=== PATIENT | female | born 2000 | race Caucasian/White ===

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

== ENCOUNTER 2021-01-01 14:20 | Outpatient (CLI) | payer OTHER ==
[~2021-01-01 14:20] MED LIST: DIFL150T PO
[2021-01-01] MEDS ORDERED: GI COCKTAIL 50ML BTL(HYOSCYAMINE/MAALOX/LIDOCAINE VISCOUS)(1:3:1) PO ONE (14:30)
[2021-01-01] MEDS ORDERED: ONDANSETRON 4MG/2ML VIAL IV PRN (14:30)
[2021-01-01] MEDS ORDERED: LOMOTIL 2.5MG/0.025MG TABLET PO ONE (14:30)
[2021-01-01] MEDS ORDERED: LR 1,000 ML IV ONE ×2 (14:30→15:50)
[2021-01-01 16:17] LABS: RSV AMPLIFICATION NEGATIVE (NEGATIVE)
--- NOTE | 2021-01-01 17:09 | IPNPDOC ---
Obstetrical Progress Note Date of Service Jan 01, 2021 Subjective 20 yo at 31w5d with PETROS of 28 FEB 2021 presents to L&D with complaints of body aches, headache, nausea, vomiting, and diarrhea for the last 3 days that have worsened over the last 18 hours. She reports that she has been having increased fatigue and lethargy. She has not had any sick contacts, she has not received her flu or COVID vaccination to date, and has not had any COVID expos ure. She denies contractions, leaking of fluid, vaginal bleeding, and reports positive movement. Assessment Heart Rate (FHR): 140 Variability: Moderate Accelerations: Positive Decelerations: None Tocometer Contractions: No (uterine irritability noted) Assessment and Plan Age: 20 : 1 Term: 0 Pre-term: 0 Abortions: 0 Livin Weeks & Days 31w5d Status: Reassuring Additional Comments Assessment: IUP at 31 weeks Gastroenteritis Dehydration Plan: Will await COVID testing, if negative will discharge to home Recommended for clear liquid diet x48 hours, then advance to BRAT, then advance diet as tolerated Discussed medication regimen and will prescribed the following: zofran, lomotil, tyelnol, pepcid Recommended to hydrate with 3-4 liters of water per day Recommended to keep all appointments with [employer] ATTENDANT Recommended to return if symptoms worsen or persist All questions answered to her and her spouses satisfaction She verbalizes understanding of all information and is without any further questions at this time. BELEN RUBALCAVA CNM Jan 01, 2021 15:52
== END 2021-01-01 19:10 | disposition home or self-care (01) ==
LOC: M LDO 14:20
PROVIDERS: ATTEND Registered Nurse Maternal Newborn
DX: O99.613 Diseases of the digestive system complicating pregnancy, third trimester (principal); K52.9 Noninfective gastroenteritis and colitis, unspecified; Z3A.31 31 weeks gestation of pregnancy; O99.283 Endocrine, nutritional and metabolic diseases complicating pregnancy, third trimester; E86.0 Dehydration; Z20.822 Contact with and (suspected) exposure to COVID-19; Z88.5 Allergy status to narcotic agent; Z88.8 Allergy status to other drugs, medicaments and biological substances
CPT/HCPCS: 59025; 87631; G0378; G0463; J2405

== ENCOUNTER → 2021-01-23 | Outpatient (CLI) | payer OTHER ==
[~2021-01-23] VITALS: Ht 165.1 cm; Wt 71.9 kg
[~2021-01-23] MED LIST changes: +ACET325C5 PO; +CYCLOBENZAPRINE 10MG TABLET PO ONE; +PRENTAB9 PO
[2021-01-23 18:58] VITALS: BP 103/51
--- NOTE | 2021-01-23 19:49 | IPNPDOC ---
Obstetrical Progress Note Date of Service Jan 23, 2021 Objective Vital Signs Date Time Temp Pulse Resp B/P (MAP) Pulse Ox O2 Delivery O2 Flow Rate FiO2 01/23/21 18:58 99.4 70 20 103/51 (68) Assessment and Plan Additional Comments Ms. Arnold is a 20yo at 35+0 who presents with constant hip and back pain. She reports she has chronic hip and back pain since [address] ems from her prior right hip surgeries. She said it is worse tonight and constant regardless of her position. She describes it as a sharp pain bilaterally and points to over the trochanters. She denied VB, LOF, decreased FM, or contractions. She denied n/v/d, cp, sob, orellana, visual changes, abd pain, f/c, urinary symptoms. She denied incontinence, weakness, paraesthesias, foot drop. EXAM AAOx3, NAD non-tachy no increased WOB gravid abdomen non-tender, soft no CVA tenderness BL LE with in-tact sensation, 5/5 strength normal affect and insight TAUS cephalic, MVP 4cm, +FM SVE 1/T/H and unchanged on 2h repeat exam NST CAT I reactive with irregular and infrequent contractions that patient cannot feel Ms. Arnold is a 20yo at 35+0 who presents with acute on chronic hip and back pain. She reports she has had hip and back pain since 20 weeks that she feels stems from her prior right hip surgeries. VS normal, CAT I NST, toco with irregular contractions that patient cannot feel. Strength and sensation in-tact on exam. SVE 1/T/H and unchanged on 2h repeat exam. UA was unremarkable. PTL is unlikely given findings at this time. Patient was given flexeril and a maternity belt with improved symptoms. Plan for physical therapy consult. Educated on routine OB return precautions. Otherwise to follow up at next NEELAM TRAN DO Jan 23, 2021 19:49
[2021-01-23 19:56] LABS: APPEARANCE, URINE CLEAR (CLEAR); BACTERIA, URINE AUTO NEGATIVE (NEGATIVE); BILIRUBIN, URINE AUTO NEGATIVE (NEGATIVE); BLOOD, URINE BLOOD NEGATIVE (NEGATIVE); COLOR, URINE YELLOW (YELLOW); GLUCOSE, URINE (UA) AUTO NEGATIVE (NEGATIVE); KETONE, URINE AUTO NEGATIVE (NEGATIVE); LEUKOCYTE ESTERASE, URINE AUTO NEGATIVE (NEGATIVE); MUCUS, URINE SMALL (NEGATIVE); NITRITE, URINE AUTO NEGATIVE (NEGATIVE); PROTEIN, URINE AUTO NEGATIVE (NEGATIVE); RBC, URINE AUTO 0 /HPF (0-3); SPECIFIC GRAVITY URINE AUTO 1.014 (1.002-1.035); SQUAMOUS EPITHELIAL CELL UR AU 1 /HPF (0-6); UROBILINOGEN, URINE AUTO 0.2 mg/dL (0.0-2.0); WBC, URINE AUTO 0 /HPF (0-3)
== END ==
LOC: M LDO 18:32
PROVIDERS: ATTEND Obstetrics & Gynecology
DX: O26.893 Other specified pregnancy related conditions, third trimester (principal); M54.50 Low back pain, unspecified; Z3A.35 35 weeks gestation of pregnancy; M25.569 Pain in unspecified knee; Z88.5 Allergy status to narcotic agent; Z88.8 Allergy status to other drugs, medicaments and biological substances
CPT/HCPCS: 59025; 76815; 81001; G0378; G0463

== ENCOUNTER 2021-02-20 20:59 | Outpatient (CLI) | payer OTHER ==
[~2021-02-20] VITALS: Ht 165.1 cm; Wt 74.1 kg
[~2021-02-20 20:59] MED LIST changes: -CYCLOBENZAPRINE 10MG TABLET PO ONE
[2021-02-20 21:22] VITALS: BP 122/69
[2021-02-20] MEDS ORDERED: VITA100T59 PO (21:42)
[2021-02-20] MEDS ORDERED: FERR325T82 PO (21:42)
[2021-02-20] MEDS ORDERED: HOME MED LIST COMPLETE! XX SCH (21:45)
--- NOTE | 2021-02-20 22:14 | IPNPDOC ---
Text Note Date of Service The patient was seen on 02/20/21. NOTE Item Value Date Time Urine Color YELLOW 02/20/212109 Urine Appearance HAZY 02/20/212109 Urine pH 5.0 UNITS 02/20/212109 Urine Specific [place] 1.034 02/20/212109 Urine Protein 1+ mg/dL H 02/20/212109 Urine Glucose (UA) NEGATIVE mg/dL 02/20/212109 Urine Blood NEGATIVE 02/20/212109 Urine Ketones NEGATIVE mg/dL 02/20/212109 Urine Nitrite NEGATIVE 02/20/212109 Urine Bilirubin 1+ H 02/20/212109 Urine Urobilinogen 0.2 mg/dL 02/20/212109 Urine Leukocyte Esterase 1+ H 02/20/212109 Urine WBC (Auto) 5 /HPF H 02/20/212109 Urine RBC (Auto) 20 /HPF H 02/20/212109 Urine Hyaline Casts (Auto) 0 /LPF 02/20/212109 Urine Bacteria (Auto) NEGATIVE 02/20/212109 Urine Squamous Epithelial Cells 9 /HPF 02/20/212109 Urine Mucus (Auto) MODERATE 02/20/21210902/20/21 19 yo AT 38.6 WEEKS HAVING LOWER ABDOMINAL PAIN NO VAGINAL LOSS DISCHARGE NO BLEEDING. HAD SEX TODAY THEN PELVIC PRESSURE. LMP 05/24/2020 EDC BY EARLY US 02/28 21. RISK FACTORS GESTATIONAL ANEMIA HIP SURGERY CAUTION HYPER FLEXION PHYSICAL EXAMINATION NO ACUTE DISTRESS NST REACTIVE MODERATE VARIABILITY NO DECELERATIONS CONTRACTIONS IRREGULAR. PELVIC EXAMINATION CERVIX SOFT POSTERIOR 1 CM NO SHOW OR DISCHARGE URINE CONCENTRATED NOT DRINKING ENOUGH FLUIDS. DISCHARGED UNDELIVERED WITH PRECAUTIONS KEEP APPOINTMENT TOMORROW AT CLINIC Baylee SNYDER, I+O VSBaylee, I+O Vital Signs Date Time Temp Pulse Resp B/P (MAP) Pulse Ox O2 Delivery O2 Flow Rate FiO2 02/20/21 21:22 98.2 67 18 122/69 (86) Davonte Boyle MD Feb 20, 2021 22:13
== END 2021-02-20 22:17 | disposition home or self-care (01) ==
LOC: M LDO 20:59
PROVIDERS: ATTEND Obstetrics & Gynecology
DX: O60.03 Preterm labor without delivery, third trimester (principal); Z3A.38 38 weeks gestation of pregnancy
CPT/HCPCS: 59025; 81001; 87088; G0378; G0463

== ENCOUNTER 2021-02-21 11:21 | Outpatient (CLI) | payer OTHER ==
[~2021-02-21] VITALS: Ht 165.1 cm; Wt 74.0 kg
[~2021-02-21 11:21] MED LIST changes: +FERR325T82 PO; +VITA100T59 PO
[2021-02-21 11:43] VITALS: BP 120/64
[2021-02-21 11:59] VITALS: BP 116/63
== END 2021-02-21 12:37 | disposition home or self-care (01) ==
LOC: M LDO 11:21
PROVIDERS: ATTEND Obstetrics & Gynecology
DX: O60.03 Preterm labor without delivery, third trimester (principal); O99.013 Anemia complicating pregnancy, third trimester; Z3A.38 38 weeks gestation of pregnancy
CPT/HCPCS: 59025; G0378; G0463

== ENCOUNTER 2021-02-23 00:36 | Outpatient (CLI) | payer OTHER ==
[~2021-02-23] VITALS: Ht 165.1 cm; Wt 75.7 kg
[2021-02-23 00:54] VITALS: BP 133/75
[2021-02-23] MEDS ORDERED: HOME MED LIST COMPLETE! XX SCH (01:00)
[2021-02-23] MEDS ORDERED: LR 1,000 ML IV ONE (02:40)
[2021-02-23 03:35] VITALS: BP 127/77
[2021-02-23 04:26] LABS: APPEARANCE, URINE CLEAR (CLEAR); BACTERIA, URINE AUTO NEGATIVE (NEGATIVE); BILIRUBIN, URINE AUTO NEGATIVE (NEGATIVE); BLOOD, URINE BLOOD NEGATIVE (NEGATIVE); COLOR, URINE YELLOW (YELLOW); GLUCOSE, URINE (UA) AUTO NEGATIVE (NEGATIVE); KETONE, URINE AUTO NEGATIVE (NEGATIVE); LEUKOCYTE ESTERASE, URINE AUTO NEGATIVE (NEGATIVE); MUCUS, URINE SMALL (NEGATIVE); NITRITE, URINE AUTO NEGATIVE (NEGATIVE); PROTEIN, URINE AUTO NEGATIVE (NEGATIVE); RBC, URINE AUTO 0 /HPF (0-3); SQUAMOUS EPITHELIAL CELL UR AU 1 /HPF (0-6); UROBILINOGEN, URINE AUTO 0.2 mg/dL (0.0-2.0); WBC, URINE AUTO 0 /HPF (0-3)
--- NOTE | 2021-02-23 04:36 | IPNPDOC ---
Text Note Date of Service Item Value Date Time Urine Color YELLOW 02/23/21399 Urine Appearance CLEAR 02/23/21399 Urine pH 6.0 UNITS 02/23/21399 Urine Specific [place] 1.020 02/23/21399 Urine Protein NEGATIVE mg/dL 02/23/21399 Urine Glucose (Auto)(UA) NEGATIVE mg/dL 02/23/21399 Urine Ketones (Auto) NEGATIVE mg/dL 02/23/21399 Urine Blood NEGATIVE 02/23/21399 Urine Nitrite NEGATIVE 02/23/21399 Urine Bilirubin NEGATIVE 02/23/21399 Urine Leukocyte Esterase (Auto) NEGATIVE 02/23/21399 Urine Urobilinogen 0.2 mg/dL 02/23/21399 Urine WBC (Auto) 0 /HPF 02/23/21399 Urine RBC (Auto) 0 /HPF 02/23/21399 Urine Hyaline Casts (Auto) 0 /LPF 02/23/21399 Urine Bacteria (Auto) NEGATIVE 02/23/21399 Urine Squamous Epithelial Cells 1 /HPF 02/23/21399 Urine Mucus (Auto) SMALL 02/23/21399 Vital Signs Label Value Date Time Patient Temperature 98.8 degrees F 02/23/2153 Temperature Source Temporal 02/23/2153 Pulse 73 02/23/2153 Respiratory Rate 18 bpm 02/23/2153 Blood Pressure Assessment 133/75 (94) 02/23/2153 Source Automatic Cuff (NIBP) Bedside Pulse Oximetry 98 % 02/23/2153 The patient was seen on 02/23/21. PRICE: JUDY HINES : 2000 MED REC#: [id number] ROOM: [facility] DOCTOR: Davonte Boyle MD PATIENT STATU S: REG CLI Cosign: REPORT #: [id number] Other : cc: Text Note Date of Service The patient was seen on 02/20/21. NOTE Item Value Date Time Urine Color YELLOW 02/20/212109 Urine Appearance HAZY 02/20/212109 Urine pH 5.0 UNITS 02/20/212109 Urine Specific [place] 1.034 02/20/212109 Urine Protein 1+ mg/dL H 02/20/212109 Urine Glucose (UA) NEGATIVE mg/dL 02/20/212109 Urine Blood NEGATIVE 02/20/212109 Urine Ketones NEGATIVE mg/dL 02/20/212109 Urine Nitrite NEGATIVE 02/20/212109 Urine Bilirubin 1+ H 02/20/212109 Urine Urobilinogen 0.2 mg/dL 02/20/212109 Urine Leukocyte Esterase 1+ H 02/20/212109 Urine WBC (Auto) 5 /HPF H 02/20/212109 Urine RBC (Auto) 20 /HPF H 02/20/212109 Urine Hyaline Casts (Auto) 0 /LPF 02/20/212109 Urine Bacteria (Auto) NEGATIVE 02/20/212109 Urine Squamous Epithelial Cells 9 /HPF 02/20/212109 Urine Mucus (Auto) MODERATE 02/20/21210902/20/21 19 yo AT 38.6 WEEKS HAVING LOWER ABDOMINAL PAIN NO VAGINAL LOSS DISCHARGE NO BLEEDING. HAD SEX TODAY THEN PELVIC PRESSURE. LMP 05/24/2020 EDC BY EARLY US 02/28 21. RISK FACTORS GESTATIONAL ANEMIA HIP SURGERY CAUTION HYPER FLEXION PHYSICAL EXAMINATION NO ACUTE DISTRESS NST REACTIVE MODERATE VARIABILITY NO DECELERATIONS CONTRACTIONS IRREGULAR. PELVIC EXAMINATION CERVIX SOFT POSTERIOR 1 CM NO SHOW OR DISCHARGE URINE CONCENTRATED NOT DRINKING ENOUGH FLUIDS. DISCHARGED UNDELIVERED WITH PRECAUTIONS KEEP APPOINTMENT TOMORROW AT CLINIC VS,Baylee, I+O VS, Baylee, I+O Vital Signs Date Time Temp Pulse Resp B/P (MAP) Pulse Ox O2 Delivery O2 Flow Rate FiO2 02/20/21 21:22 98.2 67 18 122/69 (86) Davonte Boyle MD Feb 20, 2021 22:13 DD: Davonte Boyle MD, 02/20/212213 DT: ESC 02/20/212213 DS: [email or web address] 02/20/212213 <Electronically signed by Davonte Boyle MD> 02/20/212213 DS2: NOTE Vital Signs Label Value Date Time Patient Temperature 97.9 degrees F 02/23/21 0335 Temperature Source Temporal 02/23/21 033 Pulse 71 02/23/215 Respiratory Rate 18 bpm 02/23/21334 Blood Pressure Assessment 127/77 (94) 02/23/215 Source Automatic Cuff (NIBP) 02/23/2021 patient seen 02/21/2021 for contractions and assessment for elevated blood pressure which was normalized . here today for complaints of contractions q3-5 minutes mild intensity category 1 strip moderate variability baseline normal accelerations noted . risk factors hip surgery gestational anemia examination pelvic 3cm posterior 50% effaced -3 station sf height 39 cm 4 quadrant bowel sounds soft uterus between contractions plan of care HYDRATE REASSESSMENT 2 HOURS . REVIEWED SAFE TO HAVE VAGINAL DELIVERY REVIEWED STIRRUPS WITH BACK REST . REASSESSMENT OF PATIENT CATEGORY 1 STRIP NO CERVICAL CHANGE. Patient and family requested that she be induced as her hip is popping and she is in pain. patient also claims that her appointment with lard tub washer suggested iol. having reviewed the chart there is no mention of iol . there is suggestion of positioning when in labor and ready to push. PATIENT MOTHER INDICATED THAT SHE WAS INDUCED AND DOESN'T UNDERSTAND THAT GUIDELINES AND RECOMMENDATIONS FOR DELIVERY HAVE CHANGED. ALSO IF IOL THERE IS A RISK OF INCREASE SECTION DISTRESS RISK OF TRANSIENT [place] AND NEED FOR NICU ADMISSION . PATIENT GIVEN NUMBER OF CLINIC TO CALL THURSDAY ALSO PRECAUTIONS AND REVIEWED [facility] BLEEDING CAN RETURN AT ANY TIME FOR ASSESSMENT 30 MINUTE DISCUSSION. DISCHARGED UNDELIVERED VS,Fishbone, I+O VS, Fishbone, I+O Vital Signs Date Time Temp Pulse Resp B/P (MAP) Pulse Ox O2 Delivery O2 Flow Rate FiO2 02/23/21 00:54 98.8 73 18 133/75 (94) 98 Room Air Davonte Boyle MD Feb 23, 2021 02:16
== END 2021-02-23 04:37 | disposition home or self-care (01) ==
LOC: M LDO 00:36
PROVIDERS: ATTEND Obstetrics & Gynecology
DX: O60.03 Preterm labor without delivery, third trimester (principal); O99.013 Anemia complicating pregnancy, third trimester; Z3A.38 38 weeks gestation of pregnancy
CPT/HCPCS: 59025; 81001; G0378; G0463

== ENCOUNTER 2021-02-26 15:37 | Inpatient (IN) | payer OTHER ==
[~2021-02-26] VITALS: Ht 165.1 cm; Wt 75.7 kg
[2021-02-26] VITALS (10 sets, daily range): BP systolic 111–138; BP diastolic 57–82
[2021-02-26] MEDS ORDERED: VITA500C24 PO (16:01)
[2021-02-26] MEDS ORDERED: HOME MED LIST COMPLETE! XX SCH (16:05)
--- OUTSIDE RECORDS SUMMARY | 2021-02-26 17:19 | CCD ---
Author Author [facility] Organization [facility] Address Unknown Phone Unavailable Support Name Relationship Address Phone UE Next Of Kin Unknown Unavailable FAUSTINA SIMMONS Next Of Kin [address] [place] [address] FAUSTINA SIMMONS ECON [address] [place] [address] Unavailable Re-disclosure Warning The records that you are about to access may contain information from federally-assisted alcohol or drug abuse programs. If such information is present, then the following federally mandated warning applies: This information has been disclosed to you from records protected by federal confidentiality rules (42 CFR part 2). The federal rules prohibit you from making any further disclosure of this information unless further disclosure is expressly permitted by the written consent of the person to whom it pertains or as otherwise permitted by 42 CFR part 2. A general authorization for the release of medical or other information is NOT sufficient for this purpose. The Federal rules restrict any use of the information to criminally investigate or prosecute any alcohol or drug abuse patient.The records that you are about to access may contain highly sensitive health information, the redisclosure of which is protected by Article 27-F of the [facility] Public Health law. If you continue you may have access to information: Regarding HIV / AIDS; Provided by facilities licensed or operated by the [facility] Office of Mental Health; or Provided by the [facility] Office for People With Developmental Disabilities. If such information is present, then the following [facility] mandated warning applies: This information has been disclosed to you from confidential records which are protected by state law. State law prohibits you from making any further disclosure of this information without the specific written consent of the person to whom it pertains, or as otherwise permitted by law. Any unauthorized further disclosure in violation of state law may result in a fine or alf sentence or both. A general authorization for the release of medical or other information is NOT sufficient authorization for further disc losure. Medications No Information Insurance Providers Payer name Policy type / Coverage type Policy ID Covered green party ID Covered green party's relationship to wilkes Policy Wilkes Plan Information [facility] [id number] Problems, Conditions, and Diagnoses No Information Surgeries/Procedures No Information Results ID Date Data Source [id number] 01/01/2021 03:32:00 PM EDT [facility] Name Value Range Interpretation Code Description Data Mica rce(s) Supporting Document(s) SARS coronavirus 2 RNA [Presence] in Res piratory specimen by RANDY with probe detection NEGATIVE [facility] This lab was ordered by [facility] a nd reported by [facility]. Procedure Social History No Information
[2021-02-26] MEDS ORDERED: OXYTOCIN DRIP 30 UNITS in IV 1 EA IV SCH (17:25)
[2021-02-26] MEDS ORDERED: OXYTOCIN DRIP 30 UNITS in IV 1 EA IV PRN ×4 (17:25)
--- NOTE | 2021-02-26 17:40 | HPEPDOC ---
Obstetrical History & Physical General Date of Admission Feb 26, 2021 at 17:15 History of Present Illness Mary Arnold is a 19yo G1 at 39+5 presenting for contractions. She denies vaginal bleeding, loss of fluid and endorses positive movement. Chief Complaint: Contractions, term Care Care: Good Care Dating Final EDC: Feb 28, 2021 Final EDC by: LMP LMP: May 24, 2020 Antepartum Course Height (inches): 65 Pre- weight (lbs.): 132 Admission Weight (lbs.): 163 Change in Weight (lbs.): 31 Past Medical History Past Obstetrical History : Past Obstetrical History: Primgravida POLICY ADVISER History: No pertinent history Past Medical History Medical History denies Surgical History: Other (2x hip surgeries) Family History Family History Maternal GM high blood pressure, diabetes Paternal GM breast cancer Paternal GF lung cancer Social History Marital Status: Family situation: Spouse/partner home Psychosocial History: No pertinent psych hx * Smoker: non-smoker Alcohol: Denies Drugs: denies Abuse Violence Screening Have you been hit/kicked/slapp: No Have you been sexually assault: No Imunizations Tdap status: current Allergies Coded Allergies: clavulanic acid (Verified Allergy, Unknown, rash, 02/23/21) oxycodone (Verified Allergy, Unknown, nausea, 02/23/21) prednisone (Verified Allergy, Unknown, insomnia, 02/23/21) Medications Scheduled Ascorbic Acid (Vitamin C) 500 Mg Capsule, 500 MG PO DAILY Ferrous Sulfate (Iron) 325 Mg Tablet, 1 TAB PO DAILY No.137/Iron/Folic Acd ( Vitamin Tablet) 1 Each Tablet, 1 TAB PO DAILY Physical Examination Physical Examination GENERAL: Alert and oriented times three. ABDOMEN: Gravid and non-tender to touch. FETUS: Is vertex (VTX) by sterile vaginal examination (SVE) and ultrasound HEART RATE: Regular rate and rhythm. LUNGS: Clear to auscultation (CTA). EXTREMITIES: No edema. Vital Signs/I&O Vital Signs Date Time Temp Pulse Resp B/P (MAP) Pulse Ox O2 Delivery O2 Flow Rate FiO2 02/26/21 16:18 98.4 20 02/26/21 15:56 92 120/57 (78) Laboratory Data [facility] Laboratory Tests 2 02/26/21 17:21: Serology Scanned Report Hepatitis B Testing Pertinent Laboratoy Data Blood Type: B+ RBC Antibody Screen: Negative HIV: Negative Hepatitis B: Negative Rapid Plasma Reagin: Nonreactive Rubella: Immune Varicella: Nonreactive Chlamydia/Gonorrhea: Negative Group B Streptococcus: Negative Glucose Tolerance Test: 118 Anatomy Ultrasound Placenta Location: Anterior Normal Anatomy: Yes Placenta Previa: No Steroid Therapy Steroid Therapy: No Vaginal Examination Dilation: 3 cm Effacement: 50% Station: -3 Cervical Consistency: Medium Cervical Position: Middle Presentation: Cephalic presentation Assessment Heart Rate (FHR): 130 Variability: Moderate Accelerations: Positive Decelerations: None Tocometer Contractions: Yes Frequency: regular, every 3-7 min. Multi-drug resistant Organism: No history of MDRO Assessment/Plan Assessment Mary Arnold is a 19-year-old G1 at 39+5 weeks by LMP and 1st trimester ultrasound. Presents to Labor and Delivery (L&D) for contractions. Cervix unchanged from previous evaluations at 3/50/-3. Discussed the ARRIVE trial and that primigravidas at 39 weeks had better maternal outcomes with similar outcomes with induction of labor at term. She desired induction of labor at term. Plan Admit and orient. Baggage Clerk and consent. Diet: clear liquid. Group B Streptococcus (GBS) [negative]. Labs and intravenous (IV) per unit protocol. Counseled on Pitocin and induction of labor (IOL). Lactated Ringers (LR): at 125 mL/hr. Anticipate [normal spontaneous delivery ()]. C-S as appropriate. Labor and Delivery Counseling I counseled her on the risks of vaginal delivery including but not limited to infection, bleeding. Described hemorrhage response in detail including need for blood transfusion and hysterectomy as life saving measures. Described oxytocin labor augmentation process and continuous monitoring. Described indications for delivery, forceps and vacuum deliveries. Risks of delivery including bleeding, infection, damage to nearby structures. Talked about shoulder dystocia and necessary measures including possible intentional breaking of clavicle or other bones to save the baby. She indicated understanding and all questions were answered. DANIELITO HENRIQUEZ DO Feb 26, 2021 17:40
[2021-02-26 18:30] LABS: HEMATOCRIT 34.3 % (36.0-47.0); HEMOGLOBIN 10.8 g/dl (12.0-15.5); MEAN CORPUSCULAR HEMOGLOBIN 25.2 pg (27.0-33.0); MEAN CORPUSCULAR HGB CONC 31.5 g/dl (32.0-36.5); PLATELET COUNT, AUTOMATED 223 10^3/uL (150-450); RED BLOOD COUNT 4.29 10^6/uL (4.00-5.40); WHITE BLOOD COUNT 10.4 10^3/uL (4.0-10.0)
[2021-02-26] MEDS: LR 1,000 ML IV SCH (19:01)
[2021-02-26] MEDS ORDERED: BUTORPHANOL 2 MG/ML INJ (J0595) IV ONE (22:30)
[2021-02-26] MEDS ORDERED: PROMETHAZINE INJ 25 MG/ML VIAL (J2550) IV ONE (22:30)
--- NOTE | 2021-02-26 23:28 | IPNPDOC ---
Obstetrical Progress Note Date of Service Feb 26, 2021 Subjective Pt uncomfortable, requesting IV pain medications. Objective Vital Signs Date Time Temp Pulse Resp B/P (MAP) Pulse Ox O2 Delivery O2 Flow Rate FiO2 02/26/21 22:45 18 02/26/21 19:01 82 120/58 (78) 02/26/21 17:50 98.2 Assessment Heart Rate (FHR): 120 Variability: Moderate Accelerations: Positive Decelerations: None Heart Rate Tracing: Category I Tocometer Contractions: Yes Frequency: regular, every 2-5 min. Sterile Vaginal Examination Dilation: 3 cm Effacement (%): 50% Station: -2 Cervical Consistency: Medium Cervical Position: Middle Postion/Presentation: Cephalic presentation Assessment and Plan Age: 20 : 1 Term: 0 Pre-term: 0 Abortions: 0 Livin Weeks & Days 39+5 Status: Reassuring Group B Streptococcus: Negative Anticipate: Vaginal Delivery Additional Comments 1mg stadol/12.5mg phenergan given for pain control will reevaluate labor in 4-6 hours, consider epidural/amniotomy at next check routine intrapartum care DANIELITO HENRIQUEZ DO Feb 26, 2021 23:28
[2021-02-27] VITALS (53 sets, daily range): BP systolic 90–126; BP diastolic 51–77
[2021-02-27] MEDS: LR 1,000 ML IV SCH ×3 (01:14→09:46)
[2021-02-27] MEDS ORDERED: FENTANYL 2MCG/ML ROPIVACAINE 0.2% IN 0.9% NACL 100ML IVBAG As Ordered ONE (02:38)
--- NOTE | 2021-02-27 02:45 | IPNPDOC ---
Obstetrical Progress Note Date of Service Feb 27, 2021 Subjective Called by nursing for repetitive late decelerations. Pitocin was a 6, turned off. Patient repositioned. Patient uncomfortable with contractions. Objective Vital Signs Date Time Temp Pulse Resp B/P (MAP) Pulse Ox O2 Delivery O2 Flow Rate FiO2 02/27/21 02:18 98.3 63 18 109/62 (78) Room Air Assessment Heart Rate (FHR): 120 Variability: Moderate Accelerations: Positive Decelerations: None Heart Rate Tracing: Category I Tocometer Contractions: Yes Frequency: regular, every 3-7 min. Sterile Vaginal Examination Dilation: 3 cm Effacement (%): 50% Station: -2 Cervical Consistency: Medium Cervical Position: Middle Postion/Presentation: Cephalic presentation Assessment and Plan Age: 20 : 1 Term: 0 Pre-term: 0 Abortions: 0 Livin Weeks & Days 39+6 Status: Reassuring Group B Streptococcus: Negative Anticipate: Vaginal Delivery Additional Comments Contacted anesthesia regarding epidural. Category I tracing at this time. Will allow recovery, consider rupture of membranes after epidural pl acement. routine intrapartum care DANIELITO HENRIQUEZ DO Feb 27, 2021 02:45
[2021-02-27] MEDS ORDERED: EPIDURAL/PCA KEYS XX PRN (03:19)
[2021-02-27] MEDS ORDERED: NALOXONE INJ 0.4MG/1ML VIAL (J2310 PER 1MG) IV PRN (03:19)
[2021-02-27] MEDS ORDERED: REFRIGERATOR IV KEYS XX PRN (03:19)
[2021-02-27] MEDS ORDERED: LACTATED RINGER'S 1000 ML IV PRN (03:19)
[2021-02-27] MEDS ORDERED: EPIDURAL COMMENT XX SCH (03:19)
[2021-02-27] MEDS ORDERED: diphenhydrAMINE 50MG/ML VIAL (J1200) IV PRN (03:19)
[2021-02-27] MEDS ORDERED: ePHEDrine SULFATE 25 MG/5 ML(5MG/ML) SYRINGE IV PRN (03:19)
[2021-02-27] MEDS ORDERED: FENTANYL/ROPIVACAINE/NACL BAG 100 ML EPIDURAL SCH (03:19)
[2021-02-27] MEDS ORDERED: ONDANSETRON 4MG/2ML VIAL IV PRN (03:19)
--- NOTE | 2021-02-27 04:20 | IPNPDOC ---
Obstetrical Progress Note Date of Service Feb 27, 2021 Subjective Patient comfortable with epidural, denies any complaints Objective Vital Signs Date Time Temp Pulse Resp B/P (MAP) Pulse Ox O2 Delivery O2 Flow Rate FiO2 02/27/21 03:41 66 17 113/63 (80) 02/27/21 02:18 98.3 Room Air Assessment Heart Rate (FHR): 120 Variability: Moderate Accelerations: Positive Decelerations: None Heart Rate Tracing: Category I Tocometer Contractions: Yes Frequency: regular, every 3-7 min. Sterile Vaginal Examination Dilation: 4 cm Effacement (%): 50% Station: -2 Cervical Consistency: Medium Cervical Position: Middle Postion/Presentation: Cephalic presentation Assessment and Plan Age: 20 : 1 Term: 0 Pre-term: 0 Abortions: 0 Livin Weeks & Days 39+6 Status: Reassuring Group B Streptococcus: Negative Anticipate: Vaginal Delivery Additional Comments Offered amniotomy after discussion of r/b/a including cord prolapse, emergent delivery, need for amnioinfusion. She agreed to amniotomy. Performed with return of clear fluid. Blood y show noted beforehand. Will allow baby to reequilibrate with intraamniotic environment then consider starting pitocin. routine intrapartum care DANIELITO HENRIQUEZ DO Feb 27, 2021 04:20
[2021-02-27] MEDS ORDERED: ONDANSETRON 4 MG TAB PO SCH (06:55)
[2021-02-27] MEDS ORDERED: OXYTOCIN INJ 10 UNITS/ML VIAL (J2590) IV ONE (11:15)
[2021-02-27 13:41] LABS: CORD GAS ABE V -6.4; CORD GAS HCO3 V 18.4 MEQ/L; CORD GAS O2 SAT V 82.6 %; CORD GAS PCO2 V 35.1 mmHg; CORD GAS PH V 7.337 UNITS; CORD GAS PO2 V 41.3 mmHg; CORD GAS TCO2 V 19.5 MEQ/L
[2021-02-27 13:43] LABS: CORD GAS ABE A -6.9; CORD GAS HCO3 A 17.8 MEQ/L; CORD GAS O2 SAT A 85.4 %; CORD GAS PCO2 A 34.2 mmHg; CORD GAS PH A 7.334 UNITS; CORD GAS PO2 A 43.8 mmHg; CORD GAS SBC A 18.7 MEQ/L; CORD GAS TCO2 A 18.8 MEQ/L
[2021-02-27] MEDS ORDERED: ACETAMINOPHEN TAB 650MG DOSE (2X325MG) PO PRN (14:40)
[2021-02-27] MEDS ORDERED: MOM 30ML SUSPENSION UDC PO PRN (14:40)
[2021-02-27] MEDS ORDERED: METHYLERGONOVINE MALEATE 0.2 MG/ML VIAL (J2210) IM ONE (14:40)
[2021-02-27] MEDS ORDERED: MEASLES,MUMPS,RUBELLA VACCINE INJ (MMR-II) (90707) SC SCH (14:40)
[2021-02-27] MEDS ORDERED: DIBUCAINE 1% OINTMENT 30GM TOP PRN (14:40)
[2021-02-27] MEDS ORDERED: RHOGAM 300 MCG (1500 IU) INJ (J2790) IM SCH (14:40)
[2021-02-27] MEDS ORDERED: METHYLERGONOVINE MALEATE 0.2 MG TAB PO PRN (14:40)
[2021-02-27] MEDS: IBUPROFEN 600MG TAB PO PRN ×2 (14:58→21:42)
--- NOTE | 2021-02-27 17:21 | DN ---
DELIVERY NOTE DATE OF DELIVERY: 02/27/2021 This lady is a 20-year-old 1 admitted at 39 and 5 weeks of gestation with contractions. She was offered induction of labor. With epidural in place, spontaneous vaginal delivery, live- male infant, 7 pounds 2 ounces, 3230 grams, scores of 9 and 9 at one and five minutes, respectively. Terminal meconium was noted. Arterial pH 7.33, base excess -6.9, venous pH 7.33, base excess -6.4. Placenta delivered spontaneously thereafter. Three vessels in the cord. Membranes and tissues intact. Uterus contracted well down on Pitocin. Anterior, posterior, and lateral villasenor complete. Sphincter was tight. Uterus remained well contracted under Pitocin. Patient and baby tolerating procedure well.
[2021-02-27] MEDS: PRENATAL VITAMINS CHEWABLE TABLET PO SCH (17:34)
[2021-02-27] MEDS: ACETAMINOPHEN 500 MG TAB PO PRN (20:29)
[2021-02-27] MEDS: DOCUSATE SODIUM 100MG CAPSULE PO PRN (20:29)
[2021-02-28] MEDS: ACETAMINOPHEN 500 MG TAB PO PRN ×3 (03:34→19:54)
[2021-02-28 06:00] VITALS: BP 116/58
[2021-02-28] MEDS: IBUPROFEN 600MG TAB PO PRN ×2 (06:20→16:00)
[2021-02-28 08:09] LABS: HEMATOCRIT 31.4 % (36.0-47.0); HEMOGLOBIN 9.9 g/dl (12.0-15.5); MEAN CORPUSCULAR HEMOGLOBIN 25.4 pg (27.0-33.0); MEAN CORPUSCULAR HGB CONC 31.5 g/dl (32.0-36.5); MEAN CORPUSCULAR VOLUME 80.7 fl (80.0-96.0); PLATELET COUNT, AUTOMATED 192 10^3/uL (150-450); RED BLOOD COUNT 3.89 10^6/uL (4.00-5.40); WHITE BLOOD COUNT 14.6 10^3/uL (4.0-10.0)
--- NOTE | 2021-02-28 08:34 | IPN ---
PROGRESS NOTE DATE: 02/28/2021 SUBJECTIVE: A 20-year-old 1, now para 1, who was admitted with contractions at 39 and 5 weeks of gestation, had an epidural in place, delivered a live male , 7 pounds, 2 ounces, 3230 gm, Apgars of 9 and 9 at one and five minutes respectively. Arterial pH 7.33, base excess -6.9, venous pH 7.33, base excess -6.4. On her first day, we discussed phlebitis, cystitis, mastitis, endometritis, and cellulitis, diet, exercise, pain management, perineal, breast and wound care. PHYSICAL EXAM: The rest of the examination was unremarkable. Normocephalic, atraumatic. Neck full range of motion. Pupils equal and reactive to light. Distal pulses are symmetric. No evidence of DVT, PE or superficial phlebitis. Chest is clear bilaterally to bases. No wheezes or rhonchi. No CVA tenderness. Abdomen is soft. Four quadrant bowel sounds are noted. Uterus 2 below. Lochia is moderate. Perineum is intact. She is not complaining of any hip pain and walking around and mobilizing well. Her blood pressure this morning is 116/58, respirations 16, pulse 79, temperature 97.1. Her admitting hemoglobin was 10.8, hematocrit 34.3, and platelets are 223. ASSESSMENT: In summary, we have a term gestation, delivered a live male . PLAN: Plans are to circumcise the baby today. Pediatrics has not seen the and our plans are for discharge for tomorrow morning. All questions were answered, 20 minute discussion. cc: [facility]
[2021-02-28] MEDS: PRENATAL VITAMINS CHEWABLE TABLET PO SCH (10:19)
[2021-02-28 17:12] VITALS: BP 114/59
[2021-02-28] MEDS: DOCUSATE SODIUM 100MG CAPSULE PO PRN (20:03)
[2021-03-01] MEDS: IBUPROFEN 600MG TAB PO PRN (03:36)
[2021-03-01 05:32] VITALS: BP 118/61
--- NOTE | 2021-03-01 06:55 | OBDS ---
[facility] Obstetrical Discharge Sum. Obstetrical Discharge Summary Date: Mar 01, 2021 VDRL: Non-Reactive Rh: Positive Rubella: Immune Sex: Male Weight: pounds (7), ounces (2), grams (3230) Anesthesia: Regional Anesthesia A/P, Post Course List any complications Admission diagnosis: Labor Discharge diagnosis: Condition at Discharge: STABLE Discharge Instructions: Home Activity: PELVIC REST Diet: REGULAR Medications: HAS AT HOME Follow-up: 6WK PP Other: THINKING OF NEXPLANON VS. COPPER IUD for contraception CHINMAY ESPOISTO MD Mar 01, 2021 06:54
[2021-03-01] MEDS: PRENATAL VITAMINS CHEWABLE TABLET PO SCH (08:20)
--- NOTE | 2021-03-01 11:47 | IPN ---
PROGRESS NOTE DATE: 02/27/2021 SUBJECTIVE: This patient requested circumcision of her male infant. After discussing risks and benefits of circumcision, the medical and nonmedical indications, the penile block and aftercare, expressed understanding of penile block, aftercare and bleeding, signed the consent form. All questions were answered, 20 minute discussion. We await clearance by the cleaning validation consultant cc: Cynthia Rowe OB
== END 2021-03-01 10:45 | disposition home or self-care (01) | DRG 807 ==
LOC: M LDO 15:37 → M LDI 17:15 → M OBS 02-27 16:19
PROVIDERS: ADMIT Obstetrics & Gynecology; ATTEND Obstetrics & Gynecology
PROC: 10907ZC Drainage of Amniotic Fluid, Therapeutic from Products of Conception, Via Natural or Artificial Opening (ICD-10-PCS; 2021-02-27)
PROC: 10E0XZZ Delivery of Products of Conception, External Approach (ICD-10-PCS; principal; 2021-02-28)
DX: O80 Encounter for full-term uncomplicated delivery (principal); Z37.0 Single live birth; Z3A.39 39 weeks gestation of pregnancy